=== PATIENT | female | born 1990 | race Asian ===

== ENCOUNTER 2022-03-28 03:19 | Day surgery (SDC) | payer BC ==
[2022-03-28] MEDS ORDERED: hydrALAZINE 20 MG/ML VIAL SLOW IVP PRN (03:52)
[2022-03-28] MEDS ORDERED: Lactated Ringer's 1,000 ML IV SCH (04:21)
[2022-03-28 06:40] VITALS: BMI 22.4
== END 2022-03-28 08:35 | disposition home or self-care (01) ==
LOC: CSHLD/OP 03:19
PROVIDERS: ATTEND Obstetrics & Gynecology
DX: O47.1 False labor at or after 37 completed weeks of gestation (principal); O99.891 Other specified diseases and conditions complicating pregnancy; R19.7 Diarrhea, unspecified; Z3A.39 39 weeks gestation of pregnancy; Z86.16 Personal history of COVID-19
CPT/HCPCS: 85027; 86780; 86850; 86900; 86901; 87340; 87631; 96360; 99283; J2590; J3010

== ENCOUNTER 2022-03-28 13:51 | Inpatient (IN) | payer BC ==
[2022-03-28 14:25] VITALS: BMI 22.6
[2022-03-28] MEDS ORDERED: hydrALAZINE 20 MG/ML VIAL SLOW IVP PRN (14:40)
[2022-03-28] MEDS ORDERED: Acetaminophen 500 MG TAB PO PRN (14:40)
[2022-03-28] MEDS ORDERED: Lidocaine 1% (PF) 30 ML VIAL SC PRN (14:40)
[2022-03-28] MEDS ORDERED: HYDROcodone/Acetaminophen 5/325 mg Tablet PO PRN ×2 (14:40)
[2022-03-28] MEDS ORDERED: Diphenoxylate HCl/Atropine Tablet PO PRN (14:40)
[2022-03-28] MEDS ORDERED: Methylergonovine 0.2 MG/ML VIAL IM PRN (14:40)
[2022-03-28] MEDS ORDERED: Ibuprofen 800 MG TAB PO PRN (14:40)
[2022-03-28] MEDS ORDERED: Promethazine HCl 25 MG/ML VIAL IM PRN ×2 (14:40→16:11)
[2022-03-28] MEDS ORDERED: Misoprostol 200 MCG TAB PR PRN (14:40)
[2022-03-28] MEDS ORDERED: Ondansetron PF 4 MG/2 ML Vial IVP PRN ×2 (14:40→16:11)
[2022-03-28] MEDS ORDERED: Butorphanol Tartrate 1 MG/ML VIAL SLOW IVP PRN (14:40)
[2022-03-28] MEDS ORDERED: Carboprost 250 MCG/ML AMP IM PRN (14:40)
[2022-03-28] MEDS ORDERED: Lactated Ringer's 1,000 ML IV SCH (14:45)
[2022-03-28] MEDS ORDERED: NS w/ Oxytocin 30 units 500 ML IV SCH ×2 (14:45)
[2022-03-28] MEDS ORDERED: Fentanyl 2 mcg/Bup 0.1% Cadd 100 ML ONE (14:54)
[2022-03-28 15:17] LABS: Hemoglobin 11.2 g/dL (12.0-15.5); Mean Corpuscular HGB CONC 31.1 g/dL (32.0-36.0); Mean Corpuscular Hemoglobin 24.9 pg (27.0-33.0); Mean Corpuscular Volume 80.2 fl (81.6-98.3); Mean Platelet Volume 10.8 fl (7.4-10.4); Platelet Count 280 10x3/uL (150-450); RBC Distribution Width 15.8 % (11.5-14.5); Red Blood Cell (RBC) Count 4.49 10x6/uL (3.90-5.03); White Blood Cell (WBC) Count 11.1 10x3/uL (3.5-10.5)
[2022-03-28 15:36] LABS: Syphilis Antibody Nonreactive (Nonreactive); Syphilis Antibody Index 0.04 S/CO (<1.00 Non-Reactive)
[2022-03-28 15:38] LABS: Hep B Surf Ag Non-Reactive S/CO (NonReactive)
[2022-03-28 15:44] LABS: HBSAg Index 0.16 S/CO (0-0.99)
[2022-03-28] MEDS ORDERED: Acetaminophen 325 MG TAB PO PRN (16:11)
[2022-03-28] MEDS ORDERED: Lactated Ringer's 500 ML IV PRN (16:11)
[2022-03-28] MEDS ORDERED: Moisturizing Cream (Eucerin) 113 GM JAR TOP PRN (16:11)
[2022-03-28] MEDS ORDERED: Naloxone HCl 0.4 mg/ml Vial IVP PRN ×2 (16:11)
[2022-03-28] MEDS ORDERED: diphenhydrAMINE 50 MG/ML VIAL IVP PRN (16:11)
[2022-03-28] MEDS ORDERED: ePHEDrine Sulfate 50 MG/10 ML VIAL SLOW IVP PRN (16:11)
[2022-03-28] MEDS ORDERED: Fentanyl 2 mcg/Bupivacaine 0.1% Cassette 100 ML EPIDURAL SCH (16:15)
[2022-03-28] MEDS ORDERED: Communication Order-Pharmacy FS SCH (16:15)
[2022-03-28] MEDS ORDERED: Fentanyl 100 MCG/2 ML VIAL ONE (16:47)
[2022-03-29] MEDS ORDERED: Methylergonovine 0.2 MG/ML VIAL IM PRN (10:52)
[2022-03-29] MEDS ORDERED: Bisacodyl 10 MG SUPP PR PRN (10:52)
[2022-03-29] MEDS ORDERED: Benzocaine-Menthol 82.5 ML CAN TOP PRN (10:52)
[2022-03-29] MEDS ORDERED: HYDROcodone/Acetaminophen 5/325 mg Tablet PO PRN (10:52)
[2022-03-29] MEDS ORDERED: Preparation H Ointment 28 GM TUBE PR PRN (10:52)
[2022-03-29] MEDS ORDERED: Ondansetron PF 4 MG/2 ML Vial IVP PRN (10:52)
[2022-03-29] MEDS ORDERED: Milk Of Magnesia 30 ML UDCUP PO PRN (10:52)
[2022-03-29] MEDS ORDERED: Misoprostol 200 MCG TAB VAG PRN (10:52)
[2022-03-29] MEDS ORDERED: hydrALAZINE 20 MG/ML VIAL SLOW IVP PRN (10:52)
[2022-03-29] MEDS ORDERED: NS w/ Oxytocin 30 units 500 ML IV SCH (10:52)
[2022-03-29] MEDS ORDERED: Lanolin Ointment 7 GM TUBE TOP PRN (10:52)
[2022-03-29] MEDS: Ibuprofen 800 MG TAB PO SCH ×2 (14:21→21:12)
[2022-03-29] MEDS: Ferrous Sulfate 325 MG TAB PO SCH (16:50)
[2022-03-29] MEDS: Docusate 100 MG CAP PO SCH (21:11)
[2022-03-30] MEDS: HYDROcodone/Acetaminophen 5/325 mg Tablet PO PRN ×3 (01:31→21:01)
[2022-03-30] MEDS: Ibuprofen 800 MG TAB PO SCH ×3 (06:20→22:17)
[2022-03-30] MEDS: Prenatal Vitamin 1 TAB PO SCH (07:46)
[2022-03-30] MEDS: Docusate 100 MG CAP PO SCH ×2 (07:46→21:01)
[2022-03-30] MEDS: Ferrous Sulfate 325 MG TAB PO SCH ×2 (08:12→17:23)
[2022-03-31] MEDS: Ibuprofen 800 MG TAB PO SCH ×2 (06:08→13:41)
[2022-03-31 07:37] VITALS: BP 110/68; TEMP 98.4
[2022-03-31] MEDS: Docusate 100 MG CAP PO SCH (08:17)
[2022-03-31] MEDS: Prenatal Vitamin 1 TAB PO SCH (08:17)
[2022-03-31] MEDS: Ferrous Sulfate 325 MG TAB PO SCH (08:18)
== END 2022-03-31 14:20 | disposition home or self-care (01) | DRG 807 ==
LOC: CSHLD/OP 13:51 → CSHLD 16:53 → CSHPP 03-29 11:20
PROVIDERS: ADMIT Obstetrics & Gynecology; ATTEND Obstetrics & Gynecology
PROC: 10E0XZZ Delivery of Products of Conception, External Approach (ICD-10-PCS; principal; 2022-03-29)
PROC: 0KQM0ZZ Repair Perineum Muscle, Open Approach (ICD-10-PCS; 2022-03-29)
DX: O99.344 Other mental disorders complicating childbirth (principal); Z37.0 Single live birth; O70.1 Second degree perineal laceration during delivery; F41.9 Anxiety disorder, unspecified; Z3A.39 39 weeks gestation of pregnancy; O69.81X0 Labor and delivery complicated by cord around neck, without compression, not applicable or unspecified; Z86.16 Personal history of COVID-19
CPT/HCPCS: 85027; 86780; 86850; 86900; 86901; 87340; J3010